=== PATIENT | male | born 1960 | race African-American/Black ===

== ENCOUNTER 2016-07-05 09:06 | Inpatient (IN) ==
[2016-07-05 09:32] LABS: MANUAL DIFF NEEDED? NO
[2016-07-05 09:40] LABS: BASO% 0.2 % (0.0-0.8); EOS# 0.36 X1000 (0.0-0.7); EOS% 2.9 % (0.0-10.0); HEMATOCRIT 43.2 % (42.0-52.0); HEMOGLOBIN 14.8 g/dL (14.0-18.0); IMM GRAN# 0.03 X1000 (0.0-0.04); IMM GRAN% 0.2 % (0.0-0.5); LYMPH# 2.26 X1000 (1.2-3.4); LYMPH% 18.2 % (20.5-51.1); MCH 30.2 PG (27-31); MCHC 34.3 g/dL (33-37); MCV 88.2 FL (81-99); MONO% 9.6 % (1.7-9.3); MPV 11.9 FL (7.4-10.4); NEUT% 68.9 % (42.2-75.2); PLT 186 X1000 (130-400)
[2016-07-05 10:09] LABS: URINE CULTURE PL NEEDED? NO
[2016-07-05 10:16] LABS: AGAP 13; ALBUMIN 4.2 g/dL (3.5-5.0); ALKALINE PHOSPHATASE 681 U/L (32-122); AMYLASE 759 U/L (20-200); BUN 7 mg/dL (8-22); CALCIUM 9.8 mg/dL (8.8-10.2); CHLORIDE 102 mmol/L (98-107); COSMO 281; GOT 207 U/L (10-34); GPT 294 U/L (10-44); POTASSIUM 3.9 mmol/L (3.5-5.1); SODIUM 142 mmol/L (136-145); TCO2 27 mmol/L (25-35); TOTAL PROTEIN 7.7 g/dL (6.3-8.3)
[2016-07-05 10:24] LABS: LIPASE 2199 U/L (13-60)
[2016-07-05 10:55] LABS: BILIRUBIN URINE NEGATIVE (NEGATIVE); BLOOD URINE NEGATIVE (NEGATIVE); CLARITY CLEAR (CLEAR); COLOR YELLOW; GLUCOSE URINE NEGATIVE (NEGATIVE); LEUKOCYTES URINE TRACE (NEGATIVE); NITRITE URINE NEGATIVE (NEGATIVE); PH URINE 6.5; PROTEIN URINE NEGATIVE (NEGATIVE); URINE WBC <10 /HPF (<10); UROBILINOGEN URINE NORMAL
[2016-07-05 10:56] LABS: URINE EPITHELIAL CELLS <10 /HPF (<10); URINE SOURCE CLEAN CATCH
--- NOTE | 2016-07-05 11:53 | EKG Report ---
Test Performed on : 07/05/2016 10:15:50 AM Test Reason : Epigastric pain / Cardiac history Blood Pressure : / mmHG Vent. Rate : 071 BPM Atrial Rate : 071 BPM P-R Int : 160 ms QRS Dur : 082 ms QT Int : 416 ms P-R-T Axes : 064 -22 029 degrees QTc Int : 452 ms Normal sinus rhythm. Possible Left atrial enlargement Left ventricular hypertrophy Anteroseptal infarct (cited on or before 12-APR-2007) Abnormal ECG When compared with ECG of 23-MAY-2011 00:49, premature supraventricular complexes. are no longer present T wave inversion no longer evident in Inferior leads Unconfirmed Result
--- NOTE | 2016-07-05 12:22 | Diag Imaging Result Document ---
PROCEDURE NAME: CT ABD/PELVIS W/ IV CONT ONLY - 07/05/2016 CT OF THE ABDOMEN WITH INTRAVENOUS CONTRAST: FINDINGS: There are multiple small cortical renal cysts. There is extensive intra and extrahepatic biliary dilatation. The gallbladder is distended, and there is pericholecystic fluid. The distal common bile duct measures in excess of 11 mm in diameter and the distal pancreatic duct measures 10 mm. There are no definite calcifications seen over the distal duct, however, the possibility of noncalcified stones, debris, or other obstructing lesions is suspected. There is no evidence of bowel obstruction. The appendix is normal in appearance. There is extensive atherosclerotic calcification in the aorta and iliac arteries. The adrenal glands are not enlarged. The spleen is not enlarged. The regional skeleton appears to be intact. CT of the pelvis with intravenous contrast. There is no evidence of free fluid. There is severe facet arthropathy at L4-5 and L3-4 on the right. IMPRESSION: Obstruction of the distal common bile duct and pancreatic duct with Courvoisier gallbladder. This may be due to a stone or other obstructing debris or stricture, however, the possibility of a distal biliary neoplasm cannot be excluded. [facility]
[2016-07-05] MEDS ORDERED: ZOSYN 3.375 GM/NS 3.375 GM/50 ML IVPB IV ONE (12:25)
--- NOTE | 2016-07-05 12:26 | PROVIDER DOCUMENTATION ---
This chart was entered by Lawson Andrew Scribe, acting as scribe for Marci Cervantes MD. HPI-Abdominal Pain/GI Problem - General Chief Complaint: Epigastric Pain Stated Complaint: ABD PAIN/HEADACHE Time Seen by Provider: 07/05/16 09:36 Source: patient Allergies/Adverse Reactions: Patient Allergies Allergy/AdvReac Type Severity Reaction Status Date / Time No Known Allergies Allergy Verified 07/05/16 09:13 Home Medications: Home Medication List Medication Instructions Recorded Confirmed Last Taken Type Aspirin 325 mg 07/05/16 07/05/16 History Metoprolol [Lopressor] 2 dose 07/05/16 07/05/16 History - History of Present Illness-ABD Nature of Presenting Problems: 55 YOBLKM PRESENTS TO ED WITH C/O PT STATES 2 TO 3 WEEKS HX OF ABDOMEN TENDERNESS. PT STATES 1 MONTH HX OF RT TEMPORAL PAIN THAT HAS BEEN INTERMITTENT. PT STATES 9/10 PAIN.PT STATES HTN AND STINTS X 6 YEARS AGO. Abdominal Pain Onset Location: reports: epigastric Pain Radiation: reports: no radiation Quality of Pain: reports: aching Severity in ED: reports: moderate Onset/Duration: reports: other (2 TO 3 WEEKS.) Timing: reports: still present Activities at Onset: reports: light activity Associated Symptoms: reports: headaches Bruising or Bleeding Gums?: No Similar Symptoms Previously?: No Review of Systems - Adult - REVIEW OF SYSTEMS - ADULT Constitutional: denies: chills, fever Cardiovascular: denies: chest pain, palpitations, syncope Respiratory: denies: cough, shortness of breath, wheezing Gastrointestinal: reports: abdominal pain (EPIGASTRIC.). denies: diarrhea, nausea, vomiting Musculoskeletal: denies: back pain, neck pain Neurological: reports: headache/migraines. denies: dizziness/vertigo, syncope Past History - Adult - PAST MEDICAL HISTORY-ADULT Review of Records: reports: Nursing Assessment Review, Medications Reviewed Cardiovascular: reports: UT - PRIOR SURGERIES/PROCEDURES Surgical/Procedure History: reports: reviewed, not pertinent - PRIOR HOSPITALIZATIONS Prior Hospitalizations: reports: for other non-related - IMMUNIZATION STATUS Childhood Immunizations: See Nurse Assessment Flu Vaccine: See Nurse Assessment - FAMILY HISTORY Family History: reviewed, not pertinent - SOCIAL HISTORY Smoking: denies Substance Use: denies Alcohol Use Frequency: never Living Situation: alone Physical Exam-General - CONSTITUTIONAL General Appearance: alert - EYES Eyes: PERRL/EOMI, pink conjunctivae - HEAD, EARS, NOSE, MOUTH & THROAT HENMT: normocephalic/atraumatic, moist mucous membranes - NECK Neck: non-tender, full range of motion, supple - RESPIRATORY Respiratory: chest non-tender, lungs clear, normal breath sounds - CARDIOVASCULAR Cardiovascular: normal peripheral pulses, regular rate, rhythm - GASTROINTESTINAL (ABDOMEN) Abdominal Exam: normal bowel sounds, non tender, soft - LYMPHATIC Lymphatic: no adenopathy - MUSCULOSKELETAL Back Exam: normal inspection, no CVA tenderness, no vertebral tenderness Extremity: normal range of motion, non-tender - SKIN Integumentary: normal color, normal turgor, warm/dry - NEUROLOGIC Neurologic: grossly normal - PSYCHIATRIC Psych/Mental Status: oriented x 3 Progress - PLAN OF CARE/RESULTS Progress/Plan/Lab Results: Vital Signs - 8 hr 07/05/16 09:09 Temperature 97.9 F Pulse Rate 78 Respiratory Rate 18 Blood Pressure 187/107 O2 Sat by Pulse Oximetry 100 Laboratory Results - last 24 hr 07/05/16 07/05/16 07/05/16 09:28 09:28 09:28 WBC 12.45 H RBC 4.90 Hgb 14.8 Hct 43.2 MCV 88.2 MCH 30.2 MCHC 34.3 RDW Std Deviation 14.4 Plt Count 186 MPV 11.9 H Immature Gran % (Auto) 0.2 Neut % (Auto) 68.9 Lymph % (Auto) 18.2 L [place] % (Auto) 9.6 H Eos % (Auto) 2.9 Baso % (Auto) 0.2 Immature Gran # (Auto) 0.03 Neut # (Auto) 8.57 H Lymph # (Auto) 2.26 [place] # (Auto) 1.20 H Eos # (Auto) 0.36 Baso # (Auto) 0.03 Sodium 142 Potassium 3.9 Chloride 102 Carbon Dioxide 27 Anion Gap 13 BUN 7 L Creatinine 0.9 Estimated GFR/1.73 m2 > 60 BUN/Creatinine Ratio 8 Glucose 93 Calculated Osmolality 281 Calcium 9.8 Total Bilirubin 1.60 H AST 207 H ALT 294 H Alkaline Phosphatase 681 H Troponin T < 0.010 Total Protein 7.7 Albumin 4.2 Globulin 4.0 Albumin/Globulin Ratio 1.0 Amylase 759 H Orders Category Date Time Status NPO Diet 07/05/16 09:17 Active CHEST-PORTABLE [RAD] Stat Exams 07/05/16 10:[address] ABD/PELVIS W/ IV CONT ONLY [CT] Stat Exams 07/05/16 10:10 Ordered AMYLASE [CHEM] Stat Lab 07/05/16 09:28 Results CBC WITH ELECTRONIC DIFF [HEME] Stat Lab 07/05/16 09:28 Completed COMPREHENSIVE METABOLIC PANEL [CHEM] Stat Lab 07/05/16 09:28 Results LIPASE [CHEM] Stat Lab 07/05/16 09:28 Results SED RATE [HEME] Stat Lab 07/05/16 09:28 Received TROPONIN T Stat Lab 07/05/16 09:[address] W/POSS RFLX CULT [URINALYSIS] Stat Lab 07/05/16 09:30 Received EKG [EKG] Stat Ther 07/05/16 10:03 Ordered Result Diagrams: 07/05/16 09:28 07/05/16 09:28 - CT/MRI 1 CT Study: Abdomen CT Results: ENLARGE GALL BLADDER WITH FREE FLUID AROUND GALL BLADDER, POSS. TUMOR. - CONSULTS/PCP/HOSPITALIST Notification Time Discussed: 12:25 Reason/Comments: Admit to Dr. Delacruz Departure - Departure Time of Disposition Decision: 12:24 DIAGNOSIS: Choledocholithiasis Disposition: ADMITTED INPATIENT 09 Certified Medical Emergency: Emergent Condition: Stable Referrals and Follow-Ups: None,PCP [Primary Care Provider] - This chart was documented by the indicated scribe, (Lawson Andrew Scribe) and accurately reflects the services I performed and decisions made by me, Marci Cervantes MD, as attested by the provider's signature.
--- NOTE | 2016-07-05 14:42 | Diag Imaging Result Document ---
PROCEDURE NAME: CHEST-2 VIEWS - 07/05/2016 PA AND LATERAL RADIOGRAPH OF THE CHEST: COMPARISON: None available. FINDINGS: The lungs are grossly clear. There is no discrete pleural fluid collection or evidence of pneumothorax. The cardiomediastinal silhouette and upper airway are grossly unremarkable. IMPRESSION: No evidence of acute chest pathology.
[2016-07-05] MEDS: NS 1,000 ML IV SCH (14:48)
[2016-07-05] MEDS: DILAUDID IV PRN ×3 (14:48→22:13)
--- NOTE | 2016-07-05 16:20 | ED EKG INTERP ---
This chart was entered by Lawson Andrew Scribe, acting as scribe for Marci Cervantes MD. EKG Interpretation - EKG Time of EKG reading by physician:: 10:16 EKG Read and Signed by:: Marci Cervantes EKG Interpretation (*Must complete 3 of following elements*): Abnormal Rate: 71 Rhythm: NSR QRS: LVH Comments: POSSIBLE LTATRIAL ENLARGEMENT. ANTEROSEPTAL INFARCT. This chart was documented by the indicated scribe, (Lawson Andrew Scribe) and accurately reflects the services I performed and decisions made by me, Marci Cervantes MD, as attested by the provider's signature.
[2016-07-05] MEDS: NICODERM PATCH TD SCH (16:31)
--- NOTE | 2016-07-05 16:57 | HISTORY AND PHYSICAL ---
PRIMARY CARE PHYSICIAN: None. CHIEF COMPLAINT: A 2-3 week history of right upper quadrant and epigastric abdominal pain that has progressively worsened. HISTORY OF PRESENTING ILLNESS: This is a 55-year-old, male, who presented to [facility] ER with complaints of a 2-3 week history of right upper quadrant and epigastric abdominal pain that has progressively worsened. On arrival, white blood cell count was noted to be 12.45. Total bilirubin was 1.60, AST of 207, ALT 294. Alkaline phosphatase 681. Amylase of 759. Lipase 2199. CT of the abdomen and pelvis showed an impression of an obstruction of the distal common bile duct and pancreatic duct with Courvoisier gallbladder. This may be due to a stone or other obstructing debris or stricture. However, the possibility of a distal biliary neoplasm cannot be excluded. So, he is being admitted for further evaluation and treatment. PAST MEDICAL HISTORY: Hypertension and an AK. PAST SURGICAL HISTORY: Heart stent x3. FAMILY HISTORY: Noncontributory. SOCIAL HISTORY: Currently lives alone. Smokes 1 pack of cigarettes a day and has done so for the past 25 years. Denies any alcohol or illicit drug use. ALLERGIES: He has no known drug allergies. HOME MEDICATIONS: We will have to verify his home medications and restart after his n.p.o. status has been discontinued. LABORATORY DATA: Showed a white blood cell count of 12.45, hemoglobin 14.8, hematocrit 43.2, platelets 186. Sodium 142, potassium 3.9, chloride 102, CO2 of 27, BUN of 7, creatinine is 0.9. Total bilirubin of 1.60. AST of 207, ALT 294. Alkaline phosphatase 681. Amylase of 759. Lipase 2199. Urinalysis was negative. CT of the abdomen and pelvis showed an obstruction of the distal common bile duct and pancreatic duct with Courvoisier gallbladder. This may be due to a stone or other obstructing debris or stricture. However, the possibility of a distal biliary neoplasm cannot be excluded. EKG showed normal sinus rhythm at 71. REVIEW OF SYSTEMS: She denied any fever, chills, blurred vision, dizziness, chest pain, coughing, shortness of breath. He is positive for abdominal pain in the right upper quadrant and epigastric area. Nausea. Denied any vomiting, constipation, diarrhea or burning or hurting with urination. PHYSICAL EXAMINATION: VITAL SIGNS: Showed a temperature of 97.9, pulse 78, respirations 18, blood pressure was 187/107. GENERAL: This is a 55-year-old, male, who is lying in the bed, and answers questions appropriately. HEENT: Normocephalic and atraumatic. Pupils are equal, round and reactive to light. Extraocular movements are intact. Oropharynx and nares are clear. NECK: Supple. LUNGS: Clear to auscultation bilaterally with equal lung expansion and chest wall movement. HEART: With regular rate and rhythm. No murmurs, rubs, or gallops. ABDOMEN: Soft, tender to right upper quadrant epigastric area. Bowel sounds are present x4 quadrants. EXTREMITIES: No clubbing, cyanosis, or edema. NEUROLOGICAL: The cranial nerves 2-12 are grossly intact. ASSESSMENT: 1. A choledocholithiasis. 2. Acute pancreatitis. 3. Elevated liver function tests. 4. Hypertension. 5. Tobacco abuse. PLAN: He will be admitted to the medical unit at [facility]. Held n.p.o. We will consult surgery. We will recheck a CBC, CMP. Amylase, lipase in the a.m. We will give him Dilaudid 1 mg IV q.3 hours p.r.n., Zofran 4 mg IV q.4 hours p.r.n., normal saline at 100 mL an hour. Dictated by GERMAN Lazo for Siddharth Delacruz MD cc: GERMAN Lazo MD
[2016-07-05] MEDS: ZOSYN 3.375 GM/NS 3.375 GM/50 ML IVPB IV SCH (17:55)
--- NOTE | 2016-07-05 19:13 | CONSULTATION ---
DATE OF CONSULTATION: 07/05/2016 REQUESTING PHYSICIAN: Hospitalist service. CONSULT CONCERNING: Common bile duct obstruction. HISTORY OF PRESENT ILLNESS: A 55-year-old male presenting with a several-week history of right upper quadrant and epigastric pain. He reports the pain as being aching and moderate intensity. It has been going on for 2-3 weeks but still been present towards the end epigastric region in the right upper quadrant. He was evaluated in emergency department, had a CT scan that showed biliary ductal dilatation, courvoisier's sign of his gallbladder and the concern that he might have an obstruction either from a stone or from growth or mass in the biliary tree. I was asked to evaluate the patient. He is still reporting some epigastric pain. He denies this ever happening previously. PAST MEDICAL HISTORY: Includes previous NC. PAST SURGICAL HISTORY: None. FAMILY HISTORY: Negative for pancreatic cancers or biliary disease. SOCIAL HISTORY: Reports some smoking, denies recreational drugs and some alcohol intake. HOME MEDICATIONS: To include aspirin and Lopressor. ALLERGIES: None. REVIEW OF SYSTEMS: A full 10 point review of systems obtained, negative as specified in HPI. PHYSICAL EXAMINATION: Vital Signs: Patient is currently afebrile. His vital signs have been stable. General: No acute distress. Alert, interactive, male looks stated age. HEENT: Normocephalic, atraumatic. Pupils equal, round, reactive to light. No scleral icterus noted at this time. Oropharynx benign. Neck: Supple. Trachea midline. Cardiovascular : Regular rate and rhythm. Lungs: Grossly clear. Abdomen: Soft. Some tenderness to palpation in the epigastric right upper quadrant. No peritonitis. Extremities: Moves all extremities. Neurologic: Grossly intact. Skin: No signs of jaundice. Vascular: All extremities perfused. LABORATORY: Reviewed. White blood cell count 12.4, hematocrit 43, platelet count 186,000. Total bilirubin 1.60, AST 207, ALT 294, alkaline phosphatase 681, amylase 759, lipase 2199. CT scan independently reviewed and discussed over the phone with Dr. Stephenson. Patient does have what appears to be biliary tree dilatation. ASSESSMENT AND PLAN: A 55-year-old male with epigastric pain, possible biliary pancreatitis versus pancreatitis secondary to obstructing lesion. Possible biliary pancreatitis. At this time, will repeat patient's labs as ordered by the hospitalist service. Agree with keeping him NPO and IV fluids for resuscitation. He is on antibiotics prevent possible cholangitis. At this time his gallbladder has some pericystic fluid but this may be secondary to the obstruction causing secondary cholecystitis. At this time there is not a significant amount of filling defects in the gallbladder to suggest gallstones but he could have small stones not noticeable on CT scan. Regardless, if his labs seem to improve will plan on surgical intervention tomorrow afternoon and if they do not seem to improve he may need ERCP evaluation by GI. I appreciate the consult. I will continue to follow with you. cc: Too Chou MD MTDD
[2016-07-06] MEDS: ZOSYN 3.375 GM/NS 3.375 GM/50 ML IVPB IV SCH ×4 (01:04→18:16)
[2016-07-06] MEDS: NS 1,000 ML IV SCH ×3 (01:05→23:16)
[2016-07-06 05:54] LABS: MANUAL DIFF NEEDED? NO
[2016-07-06 06:06] LABS: BASO% 0.2 % (0.0-0.8); EOS# 0.33 X1000 (0.0-0.7); EOS% 3.3 % (0.0-10.0); HEMATOCRIT 39.5 % (42.0-52.0); HEMOGLOBIN 13.8 g/dL (14.0-18.0); IMM GRAN# 0.02 X1000 (0.0-0.04); IMM GRAN% 0.2 % (0.0-0.5); LYMPH# 1.91 X1000 (1.2-3.4); LYMPH% 19.2 % (20.5-51.1); MCH 31.2 PG (27-31); MCHC 34.9 g/dL (33-37); MCV 89.2 FL (81-99); MONO# 0.86 X1000 (0.11-0.59); MONO% 8.7 % (1.7-9.3); MPV 12.9 FL (7.4-10.4); NEUT% 68.4 % (42.2-75.2); PLT 159 X1000 (130-400); RBC 4.43 XMIL (4.7-6.1)
[2016-07-06 06:27] LABS: AGAP 15; AMYLASE 341 U/L (20-200); BUN 10 mg/dL (8-22); CALCIUM 8.8 mg/dL (8.8-10.2); CHLORIDE 106 mmol/L (98-107); COSMO 285; LIPASE 275 U/L (13-60); POTASSIUM 3.7 mmol/L (3.5-5.1); SODIUM 144 mmol/L (136-145); TCO2 23 mmol/L (25-35)
--- NOTE | 2016-07-06 06:29 | PROGRESS NOTE ---
DATE: 07/06/2016 SUBJECTIVE: The patient says he is feeling somewhat better as far as his pain is concerned. No other major changes. OBJECTIVE: Vital Signs: Patient is currently afebrile. His vital signs have been stable. His blood pressure most recently is 193/106. General: No acute distress. Resting comfortably in bed. HEENT: Normocephalic, atraumatic. Pupils equal, round, react to light. Mucous membranes moist. Oropharynx benign. Neck: Supple. Trachea midline. Cardiovascular: Regular rate and rhythm. Lungs: Grossly clear. Abdomen: Soft, less tender to palpation at the epigastric and right upper quadrant. Extremities: Moves all extremities. Vascular: All extremities perfused. LABORATORY: Currently pending. ASSESSMENT AND PLAN: A 55-year-old male with dilated biliary tree with possible choledocholithiasis and biliary pancreatitis. 1. Possible biliary pancreatitis. At this time, patient's labs are pending. We will follow up with the labs. If still elevated, may need to consider Gastroenterology consult for endoscopic retrograde cholangiopancreatography. He does not have a significant stone burden noted on CT scan but this does not mean he might not have small stones that are causing obstruction but there is a possibility that he might have a periampullary mass. If his labs are improving, we will consider surgical intervention today or tomorrow depending on his pancreatitis. 2. Hypertension. At this time, we will defer further management to the hospitalist service. cc: Too Chou MD
[2016-07-06] MEDS: NICODERM PATCH TD SCH (08:40)
[2016-07-06] MEDS: APRESOLINE IV PRN (08:40)
[2016-07-06] MEDS: DILAUDID IV PRN (08:40)
[2016-07-06 08:43] LABS: ALBUMIN 3.5 g/dL (3.5-5.0); DIRECT BILIRUBIN 0.5 mg/dL (0.00-0.20); TOTAL BILIRUBIN 1.54 mg/dL (0.20-1.00); TOTAL PROTEIN 6.5 g/dL (6.3-8.3)
--- NOTE | 2016-07-06 11:27 | PROGRESS NOTE ---
DATE: 07/06/2016 SUBJECTIVE: Mr. Ramón Donald is a 55-year-old, male. He is in no acute distress, but states that he feels a little bit dizzy and short of breath, although vital signs are stable. He feels like it was after receiving medication to get his blood pressure down. His most recent blood pressure was 169/91. Otherwise, no complaints. He received pain medication shortly before I came in, and the pain that he had was in the left upper quadrant, but is pain- free at this time. OBJECTIVE: Vital Signs: Temperature 98.6 degrees, heart rate 76, respiratory rate 18, blood pressure 169/91, O2 saturation 98% on room air. General: Mr. Donald is a 55-year-old, male, in no acute distress, able to answer questions appropriately. Cardiovascular: S1, S2. Regular rate and rhythm. No rubs, gallops, murmurs. Pulmonary: Clear to auscultation. Bilateral breath sounds. No accessory muscle use or work of breathing noted. GI: Soft, nontender, nondistended. Positive bowel sounds x4. LABORATORY DATA: White blood cells 9000, hemoglobin 13, hematocrit 39, platelet count 159. Sodium 144, potassium 3.7, BUN 10, creatinine is 1.1. Glucose 89. Bilirubin down 1.54, AST up to 218, ALT up to 330, alkaline phos down to 590. Amylase down to 341 and lipase down to 275. ASSESSMENT/PLAN: 1. Possible biliary pancreatitis. Pancreatic enzymes have improved. Dr. Chou had plans for a cholangiogram today. Depending on results, will need gastroenterology consult for endoscopic retrograde cholangiopancreatography. This will depend on results of cholangiogram. There are likely small stones causing obstruction, and a possibility of a periampullary mass. Will continue intravenous fluid hydration. 2. Hypertension. He has Apresoline 10 mg intravenous every 6 hours as needed, but there are no scheduled antihypertensives. Will likely need to add clonidine. It looks like he is running anywhere from 160s to 190s over 90s to 100s. 3. Tobacco abuse. Cessation discussed. Dictated by GERMAN Bolton for Michael Shukla MD cc: GERMAN Bolton MD
[2016-07-06] MEDS: CATAPRES PO SCH ×2 (13:57→18:22)
[2016-07-06] MEDS ORDERED: MARCAINE 0.25% PF/EPI 1:200,000 ONE (18:36)
[2016-07-06] MEDS ORDERED: SODIUM CHLORIDE 0.9% ONE (18:36)
[2016-07-06] MEDS ORDERED: LR 1,000 ML ONE (18:37)
[2016-07-06] MEDS ORDERED: XYLOCAINE 1% ONE (18:37)
[2016-07-06] MEDS: DILAUDID ONE ×6 (20:18→21:48)
[2016-07-06] MEDS ORDERED: FENTANYL ONE (20:18)
[2016-07-06] MEDS ORDERED: DIPRIVAN 1% ONE (20:19)
[2016-07-06] MEDS ORDERED: NS 1,000 ML ONE (21:08)
[2016-07-06] MEDS ORDERED: LABETALOL ONE (21:20)
[2016-07-06] MEDS ORDERED: APRESOLINE ONE (21:20)
[2016-07-06] MEDS: PERIDEX MT SCH (23:17)
[2016-07-06] MEDS ORDERED: LR 0 ML ONE (23:22)
--- NOTE | 2016-07-07 01:01 | OPERATIVE NOTE ---
PROCEDURE DATE: 07/06/2016 PREOPERATIVE DIAGNOSES: 1. Pancreatitis. 2. Cholecystitis. 3. Common bile duct obstruction. POSTOPERATIVE DIAGNOSES: 1. Pancreatitis. 2. Cholecystitis. 3. Common bile duct obstruction. PROCEDURE PERFORMED: Laparoscopic cholecystectomy with cholangiogram. SURGEON: Too Chou MD. JEWEL BEARING GRINDER: None. ANESTHESIA: General endotracheal. FINDINGS: Dilated common bile duct and pancreatic duct noted on cholangiogram. There were no stones noted on the gallbladder, or any filling defects noted at the cholangiogram. There was a potential for a stricture at the distal aspect of the common bile duct at the ampulla. It was difficult to get contrast past it. We were able to get some contrast into the duodenum, but again this was a significantly dilated common bile duct and pancreatic duct, which were both visualized on the cholangiogram. COMPLICATIONS: None at time of dictation. ESTIMATED BLOOD LOSS: 5 mL. SPECIMENS REMOVED: Gallbladder. DRAINS: 19-Y[place]ut Darnell drain. BRIEF HISTORY: The patient is a 55-year-old male, presenting with epigastric pain and pancreatitis. He had a CT scan that showed extra and intrahepatic ductal dilatation, and a dilated gallbladder. It was felt that he might have a common bile duct stone causing this obstruction. He did present with pancreatitis. His pancreatitis clinically improved. It was felt the patient would benefit from a laparoscopic cholecystectomy. We elected to do a cholangiogram at that time. The risks, benefits, and alternatives were discussed with the patient. All questions were answered. DESCRIPTION OF PROCEDURE: After informed consent was obtained, the patient was brought to the operative theatre, transferred to the operative table, and placed in the supine position. General endotracheal anesthesia was then performed without complication. A formal time-out was then performed, confirming patient, date, procedure. All were in agreement. At that time, attention was given to the abdomen. An infraumbilical incision was made, through which using Optiview technique, we were able to insert an 11 mm trocar, connected to insufflation. Pneumoperitoneum was achieved. Under direct visualization, we placed 3 more trocars, all 5 mm, 1 in the subxiphoid, 2 in the right upper quadrant. Using these, the gallbladder was identified. It was very distended. It had some adhesions around it, which we took down. We were able to retract it cephalad. We were able to dissect out the cystic duct. We were able to see the common bile duct, which was significantly dilated. We were able to isolate the cystic duct. We placed a clip on the gallbladder side, and made a ductotomy. Upon doing the ductotomy, we had a significant flow of bile that was under pressure come out of the cystic duct. We were able to place a cholangiogram catheter and shot a cholangiogram. The cystic duct was short, but dilated. Common bile duct was very dilated. We were able to actually see contrast go into the pancreatic duct. There was delayed emptying into the duodenum. We were unable to see the left and right hepatic ducts, given the significant size of the dilation of the common bile duct. We removed the cholangiogram catheter. Place 3 clips on the cystic duct. We were able to identify the cystic artery, and dissected out and clipped it. We were able to take the gallbladder off the gallbladder fossa using electrocautery. We placed it into an endobag and brought it out through the infraumbilical incision. We reexamined the gallbladder fossa. There was no active drainage of bile or bleeding. Given the fact that the cystic duct was very short and dilated, and the common bile duct was dilated, and biliary pressure was elevated, we elected to place a drain, tunneled from the most lateral trocar site. We placed it near the gallbladder fossa. This was to control if there is any significant bile leakage. We did irrigate the abdomen copiously because we did drain a significant amount of bile into the abdomen trying to get the gallbladder out, but we irrigated until the suctioned fluid was clear. We then removed all trocars after closing the infraumbilical incision with 0 Vicryl on a Kip-Neno device. We closed all skin incisions with 4-0 Monocryl. The patient tolerated the procedure well, was transferred to the recovery room in stable condition. Postoperatively, we will get GI to see him for an ERCP in the morning to rule out ampullary mass. cc: Too Chou MD
[2016-07-07] MEDS: ZOSYN 3.375 GM/NS 3.375 GM/50 ML IVPB IV SCH ×4 (01:20→18:40)
[2016-07-07] MEDS: DILAUDID IV PRN ×4 (02:44→22:22)
[2016-07-07] MEDS: NORCO-10 PO PRN ×2 (03:53→23:15)
[2016-07-07] MEDS ORDERED: LOPRESSOR PO SCH (06:05)
[2016-07-07 06:15] LABS: MANUAL DIFF NEEDED? NO
[2016-07-07 06:17] LABS: BASO% 0.1 % (0.0-0.8); HEMATOCRIT 35.6 % (42.0-52.0); HEMOGLOBIN 12.2 g/dL (14.0-18.0); IMM GRAN# 0.05 X1000 (0.0-0.04); IMM GRAN% 0.4 % (0.0-0.5); LYMPH# 0.88 X1000 (1.2-3.4); LYMPH% 6.3 % (20.5-51.1); MCH 30.5 PG (27-31); MCHC 34.3 g/dL (33-37); MONO# 1.21 X1000 (0.11-0.59); MONO% 8.7 % (1.7-9.3); MPV 12.7 FL (7.4-10.4); NEUT% 84.5 % (42.2-75.2); PLT 175 X1000 (130-400)
[2016-07-07 06:47] LABS: AGAP 14; ALBUMIN 3.4 g/dL (3.5-5.0); ALKALINE PHOSPHATASE 560 U/L (32-122); BUN 12 mg/dL (8-22); CALCIUM 8.7 mg/dL (8.8-10.2); CHLORIDE 104 mmol/L (98-107); COSMO 285; GOT 229 U/L (10-34); GPT 306 U/L (10-44); POTASSIUM 4.1 mmol/L (3.5-5.1); SODIUM 142 mmol/L (136-145); TCO2 24 mmol/L (25-35); TOTAL BILIRUBIN 3.37 mg/dL (0.20-1.00); TOTAL PROTEIN 6.1 g/dL (6.3-8.3)
--- NOTE | 2016-07-07 06:53 | EKG Report ---
Test Performed on : 07/07/2016 06:23:17 AM Test Reason : Tachycardia Blood Pressure : / mmHG Vent. Rate : 108 BPM Atrial Rate : 108 BPM P-R Int : 144 ms QRS Dur : 080 ms QT Int : 358 ms P-R-T Axes : 063 -16 021 degrees QTc Int : 479 ms Sinus tachycardia. Minimal voltage criteria for LVH, may be normal variant Anteroseptal infarct (cited on or before 12-APR-2007) Abnormal ECG When compared with ECG of 05-JUL-2016 10:15, Vent. rate has increased BY 37 BPM No significant change was found Confirmed by Valarie DRAKE, Leonidas Barba ([id number]) on 07/07/2016 8:39:57 AM
--- NOTE | 2016-07-07 07:39 | PROGRESS NOTE ---
DATE: 07/07/2016 SUBJECTIVE: The patient is having some right upper quadrant pain. No major issues reported by the nursing staff. No bile noted in the BRIDGET drain. He did have a laparoscopic cholecystectomy yesterday. He did not have a significant stone burden or any stones that I noticed in his gallbladder or in his common bile duct. He had what looked like a stricture of the distal aspect of his common bile duct. I was able actually fill the pancreatic duct with the cholangiogram. OBJECTIVE: Vital Signs: Patient is currently afebrile. He has had a mild tachycardia in the 110s. Blood pressure 164/105, respiratory rate 18 and nonlabored. O2 saturation 100%. General Examination: No acute distress but mildly uncomfortable. Cardiovascular: Mildly tachycardic. Lungs: Grossly clear. Abdomen: Soft. Some mild tenderness to palpation in the right upper quadrant. No peritonitis. BRIDGET drain in place with serosanguineous output, 60 mL recorded. ASSESSMENT AND PLAN: A 55-year-old, male status post laparoscopic cholecystectomy with cholangiogram with common bile duct obstruction. Common bile duct obstruction. At this time, I have consulted gastroenterology and talked with Dr. Thorne. I suspect, given the fact that he did not have any stones in his gallbladder, that this might represent an obstruction secondary to some other etiology. We were able to have enough pressure and resistance at the ampulla to fill the pancreatic duct. There is a plan to do an endoscopic retrograde cholangiopancreatography in the next 24-48 hours. At this point, continue current treatment. We will have hospitalists continue to monitor him for his blood pressure. cc: Too Chou MD
--- NOTE | 2016-07-07 07:55 | Diag Imaging Result Document ---
PROCEDURE NAME: OPERATIVE CHOLANGIOGRAM - 07/06/2016 INTRAOPERATIVE CHOLANGIOGRAM, 2 VIEWS: FINDINGS: There is abrupt narrowing of the distal common bile duct, probably less than a centimeter in length. The remainder of the duct is markedly distended as was also present on the CT examination of 07/05/2016. The second image demonstrates a dilated pancreatic duct with similar findings distally. IMPRESSION: The possibility of a mass in the ampulla of Vater producing obstruction of both the distal common bile duct and the pancreatic duct is suggested.
[2016-07-07] MEDS ORDERED: NORCURON ONE (09:28)
[2016-07-07] MEDS ORDERED: NEOSTIGMINE ONE (09:28)
[2016-07-07] MEDS ORDERED: DECADRON ONE (09:28)
[2016-07-07] MEDS ORDERED: ANESTHESIA PB SET 88 IN 5742 ONE (09:28)
[2016-07-07] MEDS ORDERED: EXTENSION SET 32 IN 4522 ONE (09:28)
[2016-07-07] MEDS ORDERED: QUELICIN (DOSE) ONE (09:28)
[2016-07-07] MEDS ORDERED: ROBINUL ONE (09:28)
[2016-07-07] MEDS ORDERED: XYLOCAINE-MPF 2% ONE (09:28)
[2016-07-07] MEDS ORDERED: LR 3,000 ML ONE (09:28)
[2016-07-07] MEDS ORDERED: ZOFRAN ONE (09:28)
[2016-07-07] MEDS: NICODERM PATCH TD SCH (09:29)
[2016-07-07] MEDS: SODIUM CHLORIDE 0.9% INJ SCH (09:50)
[2016-07-07] MEDS: PROTONIX IV SCH ×2 (09:50→22:23)
[2016-07-07] MEDS: NS 1,000 ML IV SCH ×3 (10:01→23:15)
[2016-07-07] MEDS: LOPRESSOR PO SCH ×2 (11:34→22:23)
[2016-07-07] MEDS: ZOFRAN IV PRN ×2 (11:34→16:52)
[2016-07-07] MEDS: PERIDEX MT SCH ×2 (11:34→22:23)
--- NOTE | 2016-07-07 12:29 | CONSULTATION ---
DATE OF CONSULTATION: 07/07/2016 GASTROENTEROLOGY INPATIENT CONSULTATION REFERRING PHYSICIAN: Dr. Cohu. REASON FOR CONSULTATION: He was admitted with a dilated common bile duct, pancreatitis, history of alcoholism. HISTORY OF PRESENT ILLNESS: Mr. Donald is a 55-year-old male who was admitted on 07/05/2016 with symptoms of right upper quadrant/epigastric pain along with nausea and vomiting , elevated liver enzymes, elevated amylase and lipase, and a CT scan was done which showed evidence of possible obstruction of common bile duct and pancreatic duct with [place] gallbladder , and it was initially thought it was because of choledocholithiasis. The patient underwent laparoscopic cholecystectomy with intraoperative cholangiogram with Dr. Chou yesterday. He left a drain. Intraoperative cholangiogram showed evidence of a dilated common bile duct with a possible stricture in the distal common bile duct and possible blockage of the ampulla as the dye was able to go into the pancreas. The patient had a history of alcoholism for many decades. He has been trying to cut down for the last one month. He drinks 4-6 beers a day. He denies having any previous pancreatitis in the past. I believe pancreatitis is likely secondary to acute on chronic pancreatitis from history of alcoholism. The patient denies any previous history of blunt abdominal trauma injury or prior family history of pancreatic pathology. PAST MEDICAL HISTORY: 1. Hypertension. 2. MA. 3. Alcoholism. PAST SURGICAL HISTORY: 1. Heart stents x3 on aspirin. 2. Cholecystectomy with intraoperative cholangiogram on 07/06/[address] Chou. FAMILY HISTORY: Noncontributory. No family history of colon cancer, stomach cancer, or pancreatic cancer. SOCIAL HISTORY: He lives alone. He smokes 1 pack a day x25 years. He drinks heavily for the last 2 decades, has tried to cut down the last one month. No history of drug abuse. His cousin and family were at the bedside, very supportive. ALLERGIES: No known drug allergies. MEDICATIONS IN THE HOSPITAL: Include: 1. Peridex. 2. Hydralazine. 3. Hydrocodone/acetaminophen. 4. Dilaudid. 5. Metoprolol. 6. Nicotine patch. 7. IV fluids, normal saline at 100 mL/h. 8. Zofran. 9. Protonix 40 mg IV b.i.d. 10. Zosyn 3.375 g IV q.6 h. He is only n.p.o. REVIEW OF SYSTEMS: Denies any current fever, rigors, chills, chest pain, shortness of breath, dyspnea on exertion, genitourinary, or neurologic complaints. No history of vomiting blood or passing blood in the stools. He does have a history of nausea with dry heaving for the last 24 hours since the surgery. Denies any history of melena. Denies any history of major use of NSAIDs. He does take aspirin 325 mg daily for a history of coronary artery disease and stent. PHYSICAL EXAMINATION: Vital signs: Temperature 98.2, pulse rate of 109, respiratory rate of 16, blood pressure 145/99, satting 99% on 2 L of nasal cannula, body weight of 155 pounds, BMI 21 kg/m2. General appearance: Thin male lying in bed in no acute distress. HEENT : Pale conjunctivae. He has positive icterus. Pupils equal, reactive to light. Neck : Supple. Chest: Decreased breath sounds. Cardiac: Regular rate and rhythm, no murmurs. Abdomen: Right upper quadrant drain. Hyperactive bowel sounds. Discomfort in the periumbilical region, appears to be doing no guarding. Extremities: No cyanosis, clubbing, or edema. Neurologic: He is alert, awake. LABORATORIES: His hemoglobin and hematocrit are 12.2 and 35.6, white count of 13.9, platelet count of 135, MCV of 89. Sodium 142, potassium 4.1, chloride 104, bicarbonate 24, anion gap of 14, BUN 12, creatinine 1.1, glucose 141, calcium 8.7. Total bilirubin 3.37, AST 229, ALT 306, alkaline phosphatase, total protein 6.1, albumin 3.4. Amylase of 341, lipase of 275. On admission, amylase and lipase were 759 and 219 respectively. Urinalysis showing trace white cells. IMAGING: In the form of abdominal CT scan done on 07/04/2016 showed distal common bile duct measuring in excess of 11 mm, distal pancreatic duct measuring 10 mm. No discrete calcifications seen in the distal duct. No evidence of bowel obstruction. The appendix is normal. Extensive atherosclerotic calcification in the aorta and iliac vessels. The adrenal glands are not enlarged. Extensive intra and extrahepatic biliary dilation. Multiple small cortical renal cysts noted. Intraoperative cholangiogram: Possibility of mass in the ampulla of Vater producing obstruction of both the distal common bile duct and the pancreatic duct is suggested. IMPRESSION AND PLAN: 1. Dilated common bile duct and pancreatic duct, initial cause suspect chronic pancreatitis associated stricture versus ampullary neoplasm versus ampullary stenosis versus rule out pancreatic neoplasm. 2. Pancreatitis which is getting better. 3. Jaundice, elevated liver enzymes. 4. Status post cholecystectomy on 07/06/2016. RECOMMENDATIONS: 1. Will keep the patient on IV fluids and we will keep him on IV PPIs. 2. The patient was strongly recommended to quit alcohol completely. The patient also was counseled to quit smoking. Start MVI QD for 6-12 weeks. 3. The patient will continue IV pain control, IV antibiotics. 4. We will schedule him for ERCP tomorrow with Dr. Roy. The risks, benefits, indications, alternatives of the procedure were discussed with the patient and family. All questions were answered. cc: MD Too Boo MD Omar J. Sosa-Chirinos, MD MTDAlanna
--- NOTE | 2016-07-07 14:34 | PROGRESS NOTE ---
DATE: 07/07/2016 SUBJECTIVE: This patient states that he is feeling a little bit nauseated, he is not complaining about pain. He is asking for food and the gastroenterology department has placed this patient on a liquid diet. I will put this patient NPO after midnight. This patient is going for ERCP in the morning. He denies diarrhea, constipation. No chest pain. No shortness of breath. OBJECTIVE: Vital Signs: Temperature 97.9 degrees, pulse 115, respiratory rate 16, blood pressure 143/99, oxygen saturation 98 on room air. HEENT: Head normocephalic. No trauma. PERRLA. Neck: Supple. No JVD. No masses. Central trachea. Chest: Clear to auscultation. No wheezing. No rales. Cardiovascular: Tachycardic. Abdomen: Soft, mild tenderness to palpation at the level of the epigastric area. Positive bowel sounds. Extremities: No edema. No clubbing. No cyanosis. Neurological: The patient is alert and oriented x3. No focal neurological deficits. LABORATORY DATA: WBC 13.9, hemoglobin 12.2, hematocrit 35.6, platelets 175,000. Sodium 142, potassium 4.1, chloride 104. Bicarbonate 24, BUN 12, creatinine 1.1, glucose 141, calcium 8.7. Total bilirubin 3.3, AST 229. ALT 306. Alkaline phosphatase 560. Albumin 3.4. ASSESSMENT AND PLAN: 1. Possible biliary pancreatitis. This patient has a laparoscopic cholecystectomy with cholangiogram, the intraoperative cholangiogram showed the possibility of a mass in the ampulla of Vater producing obstruction of both the distal common bile duct and the pancreatic duct. Gastroenterology department has been consulted and they will perform an ERCP tomorrow. For now, this patient will be on a clear liquid diet and he will be NPO after midnight. 2. Hypertension. I put this patient back on his home medication Lopressor. He received the 1st dose today, the blood pressure is in the 140s and the heart rate is in the 110s. Hopefully with this medication the heart rate and blood pressure will improve. 3. Tobacco abuse. I highly advised this patient against tobacco use and I will continue with daily cessation education. cc: Micahel Shukla MD
--- NOTE | 2016-07-07 15:05 | ECHO REPORT ---
ORDER DATE: 07/07/2016 INDICATION: History of coronary disease, tachycardia, history of ND. FINDINGS: 1. Right atrium is normal in size at 3.9 cm. 2. Trace tricuspid regurgitation. RV systolic pressure of 29. 3. Normal RV size and systolic function. 4. Mild pulmonic insufficiency. 5. Normal left atrial size at 3.2 cm. 6. No mitral prolapse. Mild mitral regurgitation. 7. Normal LV size, end-diastolic dimension of 4.5. Borderline mild left ventricular hypertrophy with posterior and interventricular septal thickness 1.1 and 1.2 cm each respectively. Normal LV systolic function. Calculated EF of 59%. On some views, there does appear to be mild inferior, inferior lateral hypokinesis to akinesis. 8. Aortic valve opens well, appears trileaflet. No evidence of stenosis or insufficiency. 9. Aorta appears minimally enlarged at 3.9 cm at the root. 10. No pericardial effusion seen. cc: Miki Degroot MD
[2016-07-08] MEDS: ZOSYN 3.375 GM/NS 3.375 GM/50 ML IVPB IV SCH ×4 (04:47→23:38)
[2016-07-08] MEDS: NS 1,000 ML IV SCH ×3 (04:48→23:38)
[2016-07-08 06:13] LABS: MANUAL DIFF NEEDED? NO
[2016-07-08 06:38] LABS: BASO% 0.1 % (0.0-0.8); EOS# 0.07 X1000 (0.0-0.7); EOS% 0.7 % (0.0-10.0); HEMATOCRIT 27.1 % (42.0-52.0); HEMOGLOBIN 9.1 g/dL (14.0-18.0); IMM GRAN# 0.05 X1000 (0.0-0.04); IMM GRAN% 0.5 % (0.0-0.5); LYMPH# 2.21 X1000 (1.2-3.4); LYMPH% 20.7 % (20.5-51.1); MCH 30.2 PG (27-31); MCHC 33.6 g/dL (33-37); MONO# 1.18 X1000 (0.11-0.59); MPV 12.7 FL (7.4-10.4); PLT 136 X1000 (130-400); RBC 3.01 XMIL (4.7-6.1)
[2016-07-08 06:50] LABS: AGAP 14; ALKALINE PHOSPHATASE 485 U/L (32-122); BUN 10 mg/dL (8-22); CALCIUM 8.4 mg/dL (8.8-10.2); CHLORIDE 104 mmol/L (98-107); COSMO 282; GOT 177 U/L (10-34); GPT 253 U/L (10-44); POTASSIUM 3.7 mmol/L (3.5-5.1); SODIUM 142 mmol/L (136-145); TCO2 24 mmol/L (25-35); TOTAL BILIRUBIN 6.43 mg/dL (0.20-1.00); TOTAL PROTEIN 5.9 g/dL (6.3-8.3)
[2016-07-08] MEDS: NORCO-10 PO PRN ×2 (07:43→19:17)
--- NOTE | 2016-07-08 08:09 | PROGRESS NOTE ---
DATE: 07/08/2016 SUBJECTIVE: Patient doing well. No major issues. OBJECTIVE: Vital Signs: Patient is currently afebrile. His vital signs have been stable. General: No acute distress. Cardiovascular: Regular rate and rhythm. Lungs: Grossly clear. Abdomen: Soft, less tender compared to yesterday. BRIDGET drain in place with serosanguineous output. LABORATORY: Still pending. It should be noted that yesterday his bilirubin was 3.37. ASSESSMENT AND PLAN: A 55-year-old male with common bile duct obstruction status post laparoscopic cholecystectomy with cholangiogram. Common bile duct obstruction. At this time, GI is to see the patient. Plan on the ERCP to evaluate for possible ampullary mass. Patient is somewhat frustrated and said he does not want anything else removed from his body. We will follow up on the results of the ERCP and make further recommendations and have a further discussion with the patient depending what those results say. The patient has been clinically stable otherwise. cc: Too Chou MD
[2016-07-08] MEDS: SODIUM CHLORIDE 0.9% INJ SCH (08:45)
[2016-07-08] MEDS: PROTONIX IV SCH ×2 (08:45→20:45)
[2016-07-08] MEDS: NICODERM PATCH TD SCH (08:46)
[2016-07-08] MEDS: PERIDEX MT SCH ×2 (08:46→20:45)
[2016-07-08] MEDS: LOPRESSOR PO SCH ×2 (08:46→20:44)
[2016-07-08] MEDS ORDERED: GLUCAGON ONE (08:55)
[2016-07-08] MEDS ORDERED: DIPRIVAN 1% ONE (10:59)
[2016-07-08] MEDS ORDERED: ANESTHESIA PB SET 88 IN 5742 ONE (11:06)
[2016-07-08] MEDS ORDERED: NS 1,000 ML ONE (11:06)
--- NOTE | 2016-07-08 11:15 | Diag Imaging Result Document ---
PROCEDURE NAME: ERCP-BILIARY AND PANCREATIC - 07/08/2016 ERCP, 2 IMAGES: FINDINGS: There is a lack of filling in the mid common bile duct and the second image somewhat obscures the distal end of the common bile duct. The pancreatic duct is not as well demonstrated on this study as on the intraoperative cholangiogram of 07/06/2016. IMPRESSION: Limited study.
[2016-07-08] MEDS ORDERED: ZOFRAN ONE (12:04)
[2016-07-08 13:57] LABS: MANUAL DIFF NEEDED? NO
[2016-07-08 14:04] LABS: BASO% 0.2 % (0.0-0.8); EOS# 0.08 X1000 (0.0-0.7); EOS% 0.7 % (0.0-10.0); HEMATOCRIT 27.3 % (42.0-52.0); HEMOGLOBIN 9.1 g/dL (14.0-18.0); IMM GRAN# 0.05 X1000 (0.0-0.04); IMM GRAN% 0.5 % (0.0-0.5); LYMPH# 2.46 X1000 (1.2-3.4); LYMPH% 22.9 % (20.5-51.1); MCH 30.1 PG (27-31); MCHC 33.3 g/dL (33-37); MCV 90.4 FL (81-99); MONO# 0.94 X1000 (0.11-0.59); MONO% 8.7 % (1.7-9.3); MPV 12.5 FL (7.4-10.4); PLT 151 X1000 (130-400); RBC 3.02 XMIL (4.7-6.1)
--- NOTE | 2016-07-08 14:10 | PROGRESS NOTE ---
DATE: 07/08/2016 SUBJECTIVE: This patient just came back from ERCP, he was not complaining of abdominal pain. He feels just sleepy. He denies nausea, vomiting. No diarrhea, no constipation. No chest pain. No shortness of breath. OBJECTIVE: Vital Signs: Temperature 98.6 degrees, pulse 88, respiratory rate 14, blood pressure 162/90, O2 saturation 96 on room air. HEENT: Normocephalic. No trauma. PERRLA. Neck: Supple. No JVD. No masses. Central trachea. Chest: Clear to auscultation. No wheezing. No rales. Cardiovascular: RRR. No murmurs. Abdomen: Soft. Mild tenderness to palpation at the level of the epigastric area. Positive bowel sounds. Extremities: No edema. No clubbing. No cyanosis. Neurological: The patient is alert and oriented x3. No focal deficits. LABORATORY: WBC 10.6, hemoglobin 9.1, hematocrit 27.1, platelets 136,000. Sodium 142, potassium 3.7, chloride 104, bicarbonate 24, BUN 10, creatinine 1, glucose 100, calcium 8.4, total bilirubin 6.4, AST 177, ALT 255, alkaline phosphatase 485, albumin 3. ASSESSMENT AND PLAN: 1. Possible biliary pancreatitis, this patient just had and an ERCP done today, pending Gastroenterology Department opinion and suggestions. Surgery Department is also following this patient. 2. Hypertension. I will continue today with Lopressor. Probably the heart rate is being controlled. Blood pressure is a little bit elevated but I will monitor the blood pressure for 1 more day probably and I will add another medication if blood pressure is high. 3. Tobacco abuse. This patient has been highly advised against tobacco use and I will continue with daily cessation education. cc: Michael Shukla MD
[2016-07-08 14:16] LABS: INR 1.06; PROTIME 11.2 Seconds (9.2-11.7)
--- NOTE | 2016-07-08 16:00 | Diag Imaging Result Document ---
PROCEDURE NAME: CT ABD/PELVIS W/ IV CONT ONLY - 07/08/2016 CT ABDOMEN AND PELVIS WITH INTRAVENOUS CONTRAST: COMPARISON: 07/05/2016. FINDINGS: Interval removal of the gallbladder. There are surgical clips in the gallbladder fossa and there is a drain just beneath the liver. There is a hematoma between the right kidney and liver which extends into the gallbladder fossa. No active extravasation of contrast. There is contrast in the pancreatic duct and distal common bile duct from an ERCP performed earlier in the day. A tiny amount of free air is present consistent with recent surgery. Normal spleen and adrenal glands. There are several small renal cysts. Moderate atherosclerosis. No aneurysmal dilatation. No bowel obstruction. The urinary bladder is overly distended. The prostate is prominent measuring just over 6 cm in greatest dimension. No abscess. IMPRESSION: 1. Recent cholecystectomy with a hematoma between the right kidney and liver, but no active extravasation of contrast. 2. Distended urinary bladder with an enlarged prostate. 3. Bibasilar atelectasis with questionable small underlying infiltrate and a tiny right pleural effusion. The films were reviewed with Dr. Chou at 3:30 p.m.
[2016-07-08] MEDS: DILAUDID IV PRN (16:18)
[2016-07-08] MEDS: ZOFRAN IV PRN (16:25)
[2016-07-08] MEDS: APRESOLINE IV PRN (17:57)
[2016-07-09] MEDS: NORCO-10 PO PRN ×2 (04:31→12:04)
[2016-07-09] MEDS: ZOSYN 3.375 GM/NS 3.375 GM/50 ML IVPB IV SCH (04:31)
[2016-07-09 06:08] LABS: MANUAL DIFF NEEDED? NO
[2016-07-09 06:19] LABS: BASO% 0.2 % (0.0-0.8); EOS# 0.14 X1000 (0.0-0.7); EOS% 1.4 % (0.0-10.0); HEMATOCRIT 25.1 % (42.0-52.0); HEMOGLOBIN 8.3 g/dL (14.0-18.0); IMM GRAN# 0.05 X1000 (0.0-0.04); IMM GRAN% 0.5 % (0.0-0.5); LYMPH# 1.87 X1000 (1.2-3.4); LYMPH% 18.8 % (20.5-51.1); MCH 30.1 PG (27-31); MCHC 33.1 g/dL (33-37); MCV 90.9 FL (81-99); MONO# 0.68 X1000 (0.11-0.59); MONO% 6.8 % (1.7-9.3); MPV 12.4 FL (7.4-10.4); NEUT% 72.3 % (42.2-75.2); PLT 155 X1000 (130-400); RBC 2.76 XMIL (4.7-6.1)
[2016-07-09 06:45] LABS: AGAP 13; ALBUMIN 2.9 g/dL (3.5-5.0); ALKALINE PHOSPHATASE 415 U/L (32-122); AMYLASE 185 U/L (20-200); BUN 6 mg/dL (8-22); CALCIUM 8.3 mg/dL (8.8-10.2); CHLORIDE 105 mmol/L (98-107); COSMO 278; GOT 89 U/L (10-34); GPT 184 U/L (10-44); LIPASE 101 U/L (13-60); MAGNESIUM 1.7 mg/dL (1.5-2.7); POTASSIUM 3.7 mmol/L (3.5-5.1); SODIUM 141 mmol/L (136-145); TCO2 23 mmol/L (25-35); TOTAL BILIRUBIN 1.72 mg/dL (0.20-1.00); TOTAL PROTEIN 5.9 g/dL (6.3-8.3)
[2016-07-09] MEDS: PERIDEX MT SCH (08:04)
[2016-07-09] MEDS: LOPRESSOR PO SCH (08:04)
[2016-07-09] MEDS: PROTONIX IV SCH (08:04)
[2016-07-09] MEDS: NICODERM PATCH TD SCH (08:04)
[2016-07-09] MEDS: SODIUM CHLORIDE 0.9% INJ SCH (08:05)
[2016-07-09 08:13] VITALS: BP 159/90
[2016-07-09] MEDS: DILAUDID IV PRN ×2 (08:20→11:23)
--- NOTE | 2016-07-09 16:15 | DISCHARGE SUMMARY ---
ADMISSION DATE: 07/05/2016 DISCHARGE DATE: 07/09/2016 DISCHARGE DIAGNOSES: 1. Choledocholithiasis improved. 2. Hyperbilirubinemia. Bilirubin is improved, it was 6.3, currently down to 1.7. 3. Acute hepatitis. ALT and AST both improving, currently down to 89 and 184. 4. Elevated alkaline phosphatase 681 on admit, currently down to 415. 5. Mild protein calorie malnutrition. 6. Acute pancreatitis. Amylase and lipase both essentially back to normal on discharge secondary to biliary source. 7. Hypertension. 8. Chronic tobacco abuse. 9. Recent cholecystectomy. 10. Leukocytosis resolved. 11. Mild anemia. Hemoglobin and hematocrit has continued to decline very slightly. Currently has been stable for the past 36 hours at [address] demonstrating a mild hematoma between the right kidney and liver although no active bleeding is noted. 13. Apparent history of chronic alcohol use. CONSULTATION: Aarti Roy MD. GENERAL SURGERY PROCEDURE: ERCP by Dr. Roy. BRIEF HOSPITAL COURSE: The patient is a 55-year-old pleasant male who is currently awake and alert, sitting up on the side of the bed, asking to go home. He was admitted to the hospital secondary to pancreatitis. He was noted to have a choledochal source. Biliary tree is the source of his pancreatitis. GI was consulted. Dr. Thorne initially saw him and Dr. Roy performed an ERCP. After the ERCP Mr. Donald continued to have a tremendous amount of improvement. His total bilirubin had increased to 6.3 prior to the ERCP, currently it is down to 1.7. AST and ALT also had been increasing prior to the ERCP, currently down to [address] was performed demonstrating mild hematoma but no extravasation of fluid so he has no active bleeding. His hemoglobin and hematocrit has remained stable for the past 36 hours. As noted, Mr. Donald had a full liquid breakfast with no difficulty. He is asking to go home. He states that he feels tremendously better. He is not taking any pain medicine currently. DISPOSITION: 35 minutes was spent in discharge planning and instructions. I discussed with General Surgery patient is better. We will discharge him home. He will slowly advance his diet at home. Patient understands how to do this. He will follow up with General Surgery in the next week to recheck his hemoglobin and hematocrit. He is instructed that should his symptoms worsen or return, he will need to immediately return back to the hospital. Blood pressures were elevated at times in the hospital to 152/92, but also down to 112/71, therefore, no changes were made on his blood pressure medications currently. Patient will be discharged home with metoprolol 50 b.i.d., [place] 10 q.4 p.r.n. #15. He will continue to take Prilosec. We will discharge him home with Levaquin as there is some question as to whether he is developing an early pneumonia versus atelectasis. Certainly up and about will improve this. DISCHARGE TIME: 35 minutes was spent in discharge planning and instructions. cc: Siddharth Delacruz MD
--- NOTE | 2016-07-10 09:09 | PROGRESS NOTE ---
DATE: 07/08/2016 SUBJECTIVE: Call from the nurse about increased drainage that looked sanguineus from J-P drain placed 2 days postop from a laparoscopic cholecystectomy. We did get a stat hematocrit which showed a decrease in his hematocrit. He was hemodynamically stable. The nurses reported maybe 300-400 mL of serosanguineous output through the course of the day. Given those findings and is postoperative state, we ordered a stat CT scan with IV contrast. I personally reviewed the images and reviewed the images with the radiologist, Dr. Washington. There was a hematoma on the right side of his liver. There was no active extravasation seen with IV contrast to suggest active bleeding. It looks like he had a postoperative hematoma. The drain is in appropriate position to evaluate this. Given the fact that there is no active extravasation, I did discuss with the patient that surgical intervention would probably be risky and that he would likely have significant inflammation to the point we probably would not be able to identify an active bleed. He was actually hemodynamically stable. Continue to monitor. We informed the nurses to check his vital signs frequently and to monitor him closely. I have informed Dr. Matthew Harris, who is the concrete conveyor operator surgeon for the weekend. He will evaluate the patient. We will repeat his labs in the morning. Follow him closely. If anything changes in his surgical status could consider surgical intervention but at this time given the fact that he is hemodynamically stable and there is no active extravasation, we will monitor for now. cc: Too Chou MD MTDD
--- NOTE | 2016-07-21 14:17 | OPERATIVE NOTE ---
PROCEDURE DATE: 07/21/2016 PROCEDURES: 1. Endoscopic retrograde cholangiopancreatography. 2. Endoscopic sphincterotomy. 3. Stone removal. 4. Stent placement. PREOPERATIVE DIAGNOSES: 1. Biliary pancreatitis. 2. Choledocholithiasis. POSTOPERATIVE DIAGNOSES: 1. Biliary pancreatitis. 2. Choledocholithiasis, stones removed, stent placed. DESCRIPTION OF PROCEDURE: After informed consent and adequate intravenous sedation by anesthesia, the scope introduced into the esophagus, stomach, and duodenum. The ampullary area appears inflamed. Selective cholangiogram revealed filling defect in the distal common bile duct. A wide sphincterotomy was done. Basket sweep with removal of debris was done. At this point, a 10- [place] 5 cm stent was deployed. The scope was withdrawn. The patient tolerated the procedure well without any complications. cc: Aarti Roy MD
--- NOTE | 2016-07-24 11:27 | PROGRESS NOTE ---
DATE: 07/09/2016 SUBJECTIVE: Feeling much better. Does not have any abdominal pain. Urine is getting clearer. He did have some right-sided abdominal pain and a CT scan showed a small hematoma under the liver. OBJECTIVE: Vital Signs: Afebrile. Vital signs are stable. Heart: Normal. Lungs: Normal. Abdomen: Surgical scars. Some tenderness in the right upper quadrant. Bowel sounds present and normal. Extremities: Unremarkable. Laboratory Data: The bilirubin has come down from 6.3 to 1.7. Similarly, LFTs were also down. There is some hematoma in the right upper quadrant which seems to be related to surgery. IMPRESSION AND PLAN: 1. Choledocholithiasis. 2. Cholangitis. 3. Acute pancreatitis. 4. Hematoma in the right upper quadrant. 5. History of alcohol use. The patient had a cholecystectomy. Patient had endoscopic retrograde cholangiopancreatography and stone removal and stent placement. He had pancreatitis which has resolved. Liver function tests are improving. The patient is getting ready to be discharged. I will see him in followup in 3-4 weeks at which time I will remove the stent and re-examine the bile duct site. cc: Aarti Roy MD
== END 2016-07-09 12:00 | disposition home or self-care (01) ==
LOC: P.ED 09:06 → 4N 09:06 → SUATTDRO 09:07 → OBSVTOIN 09:07 → 4N 14:03
PROVIDERS: ATTEND Family Medicine
PROC: EN.ERCP (2016-07-08 09:10)

== ENCOUNTER 2016-10-22 13:34 | Inpatient (IN) ==
[2016-10-22 15:28] LABS: BASO% 0.2 % (0.0-0.8); EOS# 0.22 X1000 (0.0-0.7); HEMATOCRIT 38.8 % (42.0-52.0); HEMOGLOBIN 14.4 g/dL (14.0-18.0); IMM GRAN# 0.02 X1000 (0.0-0.04); IMM GRAN% 0.2 % (0.0-0.5); LYMPH# 2.41 X1000 (1.2-3.4); LYMPH% 21.8 % (20.5-51.1); MANUAL DIFF NEEDED? NO; MCH 28.4 PG (27-31); MCHC 37.1 g/dL (33-37); MCV 76.5 FL (81-99); MONO# 0.93 X1000 (0.11-0.59); MONO% 8.4 % (1.7-9.3); NEUT% 67.4 % (42.2-75.2); PLT 183 X1000 (130-400); RBC 5.07 XMIL (4.7-6.1)
[2016-10-22 15:38] LABS: AGAP 16; ALBUMIN 4.3 g/dL (3.5-5.0); ALKALINE PHOSPHATASE 1022 U/L (32-122); AMYLASE 392 U/L (20-200); BUN 16 mg/dL (8-22); CALCIUM 9.4 mg/dL (8.8-10.2); CHLORIDE 101 mmol/L (98-107); COSMO 273; GOT 247 U/L (10-34); GPT 442 U/L (10-44); LIPASE 689 U/L (13-60); POTASSIUM 3.6 mmol/L (3.5-5.1); SODIUM 136 mmol/L (136-145); TCO2 19 mmol/L (25-35); TOTAL BILIRUBIN 12.75 mg/dL (0.20-1.00); TOTAL PROTEIN 7.8 g/dL (6.3-8.3)
--- NOTE | 2016-10-22 16:33 | PROVIDER DOCUMENTATION ---
This chart was entered by Bev Wharton Scribe, acting as scribe for Dannie Espinosa MD. HPI-General Adult - General Chief Complaint: Abnormal Lab[s] Stated Complaint: SENT BY MD FOR LIVER TO BE CHECKED Time Seen by Provider: 10/22/16 13:42 Source: patient Allergies/Adverse Reactions: Patient Allergies Allergy/AdvReac Type Severity Reaction Status Date / Time No Known Allergies Allergy Verified 07/05/16 09:13 Home Medications: Home Medication List Medication Instructions Recorded Confirmed Last Taken Type Metoprolol [Lopressor] 2 dose PO BID 07/05/16 07/06/16 07/05/16 History 50 mg Hydrocodone/APAP 10 mg/325 mg 1 each PO Q4H PRN PRN #15 tablet 07/09/16 Unknown Rx [Diboll-10] Levofloxacin [Levaquin] 500 mg PO DAILY #7 tablet 07/09/16 Unknown Rx - History of Present Illness -Gen Adult Nature of Presenting Problems: Pt is a 55 year old male who came to the ED with a cc of abnormal labs and dark urine for the past week. Pt liver enzymes are elevated told by his PCP. Pt was drinking two beers a night but hasn't been since he was sick. Location of Pain/Injury: reports: none Pain Radiation: reports: no radiation Quality of Pain: reports: none Onset/Duration: reports: just prior to arrival Timing: reports: still present Context/Activities at Onset: reports: none Modifying Factors: improves with: nothing Associated Symptoms: reports: denies symptoms Similar Symptoms Previously?: Yes Recently seen or treated by another doctor?: Yes Review of Systems - Adult - REVIEW OF SYSTEMS - ADULT Constitutional: denies: chills, fever Eyes: denies: blurred vision, double vision Ears, Nose, Mouth & Throat: reports: no symptoms reported Cardiovascular: reports: no symptoms reported Respiratory: reports: no symptoms reported Gastrointestinal: denies: diarrhea, nausea, vomiting Genitourinary: reports: no symptoms reported Musculoskeletal: reports: no symptoms reported Integumentary: reports: no symptoms reported Neurological: reports: no symptoms reported Psychiatric: reports: no symptoms reported Endocrine: reports: other (abnormal labs). denies: cold intolerance, heat intolerance Hematologic/Lymphatic: reports: no symptoms reported Allergic/Immunologic: reports: no symptoms reported All Other Systems: Reviewed and Negative Past History - Adult - PAST MEDICAL HISTORY-ADULT Review of Records: reports: Old Records Reviewed, Nursing Assessment Review Major Childhood Illnesses: reports: denies history Cardiovascular: reports: HTN, [place] Respiratory: reports: denies history Gastrointestinal: reports: denies history Obstetrical/Gynecological: reports: denies history Genitourinary: reports: denies history Musculoskeletal: reports: denies history Neurological: reports: denies history Endocrine/Immune: reports: denies history Other Conditions: reports: denies history - PRIOR SURGERIES/PROCEDURES Surgical/Procedure History: reports: reviewed, not pertinent - PRIOR HOSPITALIZATIONS Prior Hospitalizations: reports: for other non-related - IMMUNIZATION STATUS Childhood Immunizations: See Nurse Assessment Flu Vaccine: See Nurse Assessment - FAMILY HISTORY Family History: reviewed, not pertinent - SOCIAL HISTORY Smoking: cigarettes Physical Exam-General - CONSTITUTIONAL General Appearance: alert, no apparent distress - EYES Eyes: other (jaundice eyes) - HEAD, EARS, NOSE, MOUTH & THROAT HENMT: normocephalic/atraumatic, moist mucous membranes - NECK Neck: non-tender, full range of motion - RESPIRATORY Respiratory: chest non-tender, lungs clear - CARDIOVASCULAR Cardiovascular: normal peripheral pulses, regular rate, rhythm - GASTROINTESTINAL (ABDOMEN) Abdominal Exam: normal bowel sounds, non tender, soft - MUSCULOSKELETAL Back Exam: normal inspection, no CVA tenderness Extremity: normal range of motion, non-tender - SKIN Integumentary: normal color, normal turgor - NEUROLOGIC Neurologic: grossly normal - PSYCHIATRIC Psych/Mental Status: normal mood/affect, normal thought content, normal thought process, oriented x 3 Progress - PLAN OF CARE/RESULTS Progress/Plan/Lab Results: Vital Signs - 8 hr 10/22/16 13:37 Temperature 98.1 F Pulse Rate 84 Respiratory Rate 20 Blood Pressure 170/104 O2 Sat by Pulse Oximetry 98 Orders Category Date Time Status CBC WITH ELECTRONIC DIFF [HEME] Stat Lab 10/22/16 13:49 Uncollected CMP [COMPREHENSIVE METABOLIC PANEL] [CHEM] Stat Lab 10/22/16 13:49 Uncollected Result Diagrams: 10/22/16 14:53 10/22/16 14:53 - REASSESSMENT Reassessment #1 Time Reassessed: 17:16 Status: unchanged (agrees to admission/ pancreatitis/ biliary obstruction) Departure - Departure Date of Disposition Decision: 10/22/16 Time of Disposition Decision: 17:16 DIAGNOSIS: Biliary obstruction Pancreatitis Qualifiers: Chronicity: chronic Pancreatitis type: biliary Qualified Code(s): K86.1 - Other chronic pancreatitis Disposition: ADMITTED INPATIENT 09 Certified Medical Emergency: Emergent Condition: Stable Referrals and Follow-Ups: None,PCP [Primary Care Provider] - - Critical Care Note This patient required my direct & personal management of CC.: No Attestation - Physician/ MARTÍNEZ Attestation The physician spent face to face time with patient:: Yes Advanced Practice Provider documentation review:: Supervising physician onsite and consulted in the evaluation and care of this patient. The physician did have a face to face encounter with the patient. This chart was documented by the indicated scribe, (Bev Wharton Scribe) and accurately reflects the services I performed and decisions made by me, Dannie Espinosa MD, as attested by the provider's signature.
--- NOTE | 2016-10-22 17:12 | Diag Imaging Result Doc PS360 ---
EXAM: CT ABD/PELVIS W/ IV CONT ONLY HISTORY: lft, amylase, lipase, elevated TECHNIQUE: CT of the abdomen and pelvis with intravenous contrast and reduced dose (clarity.) COMMENT: There is atelectasis in the posterior costophrenic sulcus of both lower lobes. There is atherosclerotic calcification in the infrarenal abdominal aorta. The distal aorta is slightly distended to a maximum AP diameter of 2.1 cm. The common iliac arteries are also slightly distended with the right measuring 13 mm in diameter. The mesenteric arteries are patent. The renal arteries are patent. The adrenal glands and spleen are not enlarged. There is been cholecystectomy. There is marked biliary dilatation. There is also marked dilatation of the pancreatic duct into the head of the pancreas. No definite stones are identified. The common bile duct measures almost 12 mm and the distal pancreatic duct measures up to 10 mm. This is much worse than on 08/12/2016. The intrahepatic biliary ducts are markedly distended. There are numerous cysts in the kidneys. The appearance of the kidneys has not changed significantly since the previous study. There is no evidence of bowel obstruction. No significant adenopathy is present. Pelvis: The regional skeleton is stable in appearance. There are no abnormal fluid collections. There is no evidence of adenopathy or mass. IMPRESSION: Marked worsening of dilatation the common bile duct and pancreatic duct, presumably due to obstructing lesion at the level of the distal common bile duct or ampulla. Electronically signed by Lior Stephenson 10/22/2016 5:09 PM
[2016-10-22 17:59] LABS: INR 1.04; PROTIME 10.9 Seconds (9.2-11.7)
[2016-10-22 18:02] LABS: ACETAMINOPHEN 3.7 ug/mL (10-30)
--- NOTE | 2016-10-22 19:41 | HISTORY AND PHYSICAL ---
TIME OF ENCOUNTER: 1800 PRESENTING COMPLAINT: [place] yellow urine. HISTORY OF PRESENTING COMPLAINT: Mr. Donald is a 55-year-old male known to have coronary artery disease status post stent in the past and also hypertension was admitted to [facility] on somewhere in June because of right upper quadrant pain, was found to be in biliary pancreatitis, was brought in here, laparoscopic cholecystectomy was done and also ERCP with stent placement was done. The patient did well went home, he seems to be doing fine. Followed up with Dr. Roy according to him to have the stent removed. According to Mr. Donald he has been relatively fine until about a week ago he started noticing that his urine is getting darker, more yellow and he has been kind of dragging himself to get up, having some weakness and his appetite is little low. Mr. Donald also states that he has been having some on and off temperatures. So he decided to go to a primary care doctor who referred him to come to the emergency room. PAST MEDICAL HISTORY: 1. Coronary artery disease status post stents about 7 years ago, [facility] [place]. 2. Hypertension. MEDICATIONS AT HOME: 1. Metoprolol 50 mg 2 times per day. 2. Aspirin 325 once daily. ALLERGIES: None. SURGICAL HISTORY: 1. Previous stents. 2. Recent laparoscopic cholecystectomy. 3. Recent CBD stent placement and removal. SOCIAL HISTORY: Patient is , lives with the , has 4 kids. Has about 30 pack year history and also occasionally drinks alcohol. Denies any recreational drug use. REVIEW OF SYSTEMS: Fourteen point review of system conducted with Mr. Donald unremarkable except what we have in the HPI. Specifically Mr. Donald denies any chest pain, shortness of breath. There is no abdominal pain. No diarrhea. Occasionally has some hiccups. Patient refers to have lost some weight but he cannot quantify, BMI is 19.5. PHYSICAL EXAM: VITAL SIGNS: Blood pressure is 141/85, pulse of 81, respirations 18, temperature is 98.2 degrees, height is 5 feet 11 inches, weight is 140 pounds and BMI of 19.5. GENERAL: Mr. Donald is a 55-year-old male. He is in bed. He is not in any distress. He looks slightly wasted. HEENT: Mucosa is pink and moist. About 3+ icteric. Head is normocephalic and atraumatic. NECK: Supple. There is no JVD. CHEST: Good air entry bilateral. There is no crepitations, no rhonchi. There is no accessory muscle use. CARDIOVASCULAR: Regular rate and rhythm. There is no murmurs, no rubs, no gallops. Neola is at the 5th intercostal space midclavicular line. ABDOMEN: Is soft, is completely nontender, bowel sounds are present. Did not feel any masses and no hepatosplenomegaly. There is no CVA tenderness. EXTREMITIES: No pedal edema. Distal pulses are present. BUSINESS DEVELOPMENT DIRECTOR: Patient is awake, alert and oriented x4. Executive functions are intact. Normal gait. Cerebellar functions are normal. Motor is 5/5 in all 4 extremities and sensation is intact. Cranial nerves 2-12 have been grossly examined and they are all unremarkable. LABORATORY DATA: WBC is 11.07, hemoglobin is 14.4, platelet count of 183,000. Chemistry is reviewed. Sodium is 136, potassium is 3.6, chloride is 101, bicarb is 19, BUN is 16, creatinine is 1.4 which is new, total bilirubin is 12.75, AST 247, ALT 442, alkaline phosphatase is 1022, amylase is 395 and lipase is 689. Coagulation. PT 10.9, INR is 1.04. A CT scan of the abdomen and pelvic shows marked worsening of dilation the common bile duct and pancreatic duct presumably due to obstructing lesion at the level of the distal common bile duct or ampulla. ASSESSMENT: Mr. Donald is a 55-year-old who about 4 months ago had biliary pancreatitis, got gallbladder taken out, a stent was placed. Came in this time again with recurrent of his symptoms. 1. Obstructive jaundice. CT report alludes to the possibility of a distal common bile duct obstructing lesion. We will consult GI to evaluate the patient for another ERCP with possible stent placement and get some tissue from the obstructing lesion. 2. Biliary pancreatitis. CT scan did not show any inflammatory changes in the pancreas however the lipase and amylase are very elevated. We are going to keep the patient at least NPO for now. Get him well hydrated and get GI to see him. 3. Generalized weakness and B symptoms. Patient refers to have to have lost some weight. He has lost appetite. He has some occasional sweats and some fevers. In the setting of painless jaundice this is kind of worrisome for possible underlying malignancy. The CA-19-9 has been noted and will be waiting on GI to give further recommendations. 4. History of coronary artery disease status post stent in the past noted. 5. Tobacco abuse. PLAN: We are going to admit Mr. Donald to medical floor with playground monitor. We will going to start him on lactated Ringer's at the rate of 125 mL/h. Keep him NPO until he is evaluated by GI just in case they want to do any emergent procedure. I will start the patient on antibiotics in (meropenem) just because he said he had some chills and fevers just to make sure the CBD stagnant bile is not getting infected. Will follow up in the morning with repeat labs and give further recommendations. cc: Steven Navarro MD MTDD
[2016-10-22] MEDS: MERREM 500 MG in NS 50 ML IV SCH (20:20)
[2016-10-23] MEDS: MERREM 500 MG in NS 50 ML IV SCH ×3 (04:10→20:51)
[2016-10-23 06:33] LABS: AGAP 15; ALBUMIN 4.1 g/dL (3.5-5.0); ALKALINE PHOSPHATASE 939 U/L (32-122); BUN 14 mg/dL (8-22); CALCIUM 9.1 mg/dL (8.8-10.2); CHLORIDE 102 mmol/L (98-107); COSMO 277; GOT 221 U/L (10-34); GPT 399 U/L (10-44); IRON SATURATION 27 %; POTASSIUM 3.7 mmol/L (3.5-5.1); SODIUM 138 mmol/L (136-145); TCO2 21 mmol/L (25-35); TIBC 367 ug/dL; TOTAL BILIRUBIN 12.17 mg/dL (0.20-1.00); TOTAL IRON 99 ug/dL (53-167); TOTAL PROTEIN 7.1 g/dL (6.3-8.3); UNBOUND IRON 268 ug/dL (112-346)
[2016-10-23 06:54] LABS: HEMATOCRIT 36.3 % (42.0-52.0); HEMOGLOBIN 13.3 g/dL (14.0-18.0); MCHC 36.6 g/dL (33-37); MCV 76.4 FL (81-99); PLT 178 X1000 (130-400); RBC 4.75 XMIL (4.7-6.1)
[2016-10-23] MEDS ORDERED: TORADOL IV SCH (10:15)
[2016-10-23] MEDS ORDERED: NICODERM PATCH TD ONE (10:15)
[2016-10-23] MEDS ORDERED: TORADOL IV PRN (11:14)
--- NOTE | 2016-10-23 14:58 | PROGRESS NOTE ---
DATE: 10/23/2016 SUBJECTIVE: The urine was yellow in color and he was concerned. He is a 55-year-old male, known to have coronary artery disease status post stent in the past. Also hypertension. Admitted for [place] somewhere in June with right upper quadrant pain. Found to have biliary pancreatitis. Was brought for laparoscopic cholecystectomy which was done, and also endoscopic retrograde cholangiopancreatography and stent placement done. Patient did well, went home. Seems to be doing fine. Followup with Aarti Roy. According to him bruce were removed. According to Mr. Donald he had been relatively fine until about a week ago. Started noticed his urine was getting darker and more yellow. Kind of dragged himself around, having some weakness. Appetite is a little low. Been having some subjective fevers. He decided to go to his primary care doctor and he referred her to the emergency room with coronary artery disease. PAST MEDICAL HISTORY: 1. Once again, coronary artery disease. Stents placed about 7 years ago. 2. Hypertension. 3. Apparently was at [place] in June with biliary pancreatitis. Had a laparoscopic cholecystectomy suspected. An endoscopic retrograde cholangiopancreatography done at that time. Was admitted with obstructive jaundice. CT report includes the possibility of distal common bile duct obstruction. GI consulted. Consider endoscopic retrograde cholangiopancreatography and possibility of choledocholithiasis. 4. Biliary pancreatitis. CT scan showed inflammation. Did not show any inflammation changes in the pancreas; however, his lipase and amylase were elevated. 5. General weakness and he has lost some weight. Poor appetite. 6. History of coronary artery disease. 7. History of tobacco use. GI is consulted and CA 19-9 is being checked. Hepatitis profile being checked at this time. He is complaining of a headache. I will let him have some Toradol. Nicotine patch. I think he could probably have liquids and be okay. cc: Pablito Ayon MD
--- NOTE | 2016-10-23 18:42 | CONSULTATION ---
DATE OF CONSULTATION: 10/23/2016 PRIMARY CARE PROVIDER: None. PRIMARY DAIRY NUTRITION SPECIALIST: Aarti Roy M.D. INDICATION FOR CONSULTATION: 1. Jaundice. 2. Ampullary obstruction. 3. History of biliary pancreatitis. HISTORY OF PRESENT ILLNESS: Mr. Donald is a 55-year-old male who presented with right upper quadrant pain and jaundice in June 2016. He was found to have biliary pancreatitis. He subsequently underwent a cholecystectomy which confirmed chronic cholecystitis and an ERCP with stent placement for jaundice. He states that he was doing well following hospital discharge. Approximately 1 week prior to admission, he noticed that his urine became dark in color and it was associated with jaundice and fatigue. He presented to the emergency room on 02/2017. On CT scan, he was found to have worsening dilation of the common bile duct and pancreatic duct suggestive of an obstructive lesion at the level of the common bile duct or ampulla. We are asked to participate in his care and reevaluate his hepatobiliary tree with a possible ERCP. PAST MEDICAL HISTORY: 1. Coronary artery disease. 2. History of coronary artery stent approximately 2009. 3. Hypertension. 4. Remote heavy alcohol use. He reports only occasional alcohol at the present time. PAST SURGICAL HISTORY: 1. Cholecystectomy. 2. ERCP. 3. Coronary artery stents. MEDICATION ALLERGIES: None. HOME MEDICATIONS: 1. Metoprolol 50 mg twice daily. 2. Aspirin 325 mg daily. SOCIAL HISTORY: The patient is and has 4 children. He has a 30 pack- year tobacco history. He has a history of occasional alcohol use at present. He reports heavier alcohol use in the past. He denies recreational drug use. Smokes 1 pack per day and has done so for approximately 30 years. According to the chart, he has had remote alcohol use in the past but drinks only socially at the present time. There is no documentation of recreational drug use. REVIEW OF SYSTEMS: Negative for nausea with vomiting, chest pain, shortness of breath. He notes jaundice, fatigue, pruritus and possible weight loss. He is unable to quantify how much weight loss. PHYSICAL EXAM: General: He is in no acute distress. Vital Signs: His blood pressure is 171/94, pulse 96, respiration 18, temperature 98.3 degrees. HEENT: Notable for jaundice. His sclerae are normal in color. His oropharyngeal mucosal membranes are moist. Pulmonary : Lungs are clear to auscultation with normal respiratory effort. Cardiovascular Exam: Reveals regular rate and rhythm with no gallops or rubs. Abdomen: Reveals normoactive bowel sounds. The abdomen is soft, nontender, with no rebound or guarding. Extremities: Bilaterally are negative for cyanosis, clubbing, or edema. OBJECTIVE DATA: Reveals a hemoglobin of 13.3 with hematocrit of 36.3 and a white count of 10.15. His MCV is 76.4 with an MCH of 28.0. He has 178,000 platelets. His sodium is 138, potassium 3.7, chloride 102, CO2 21, BUN 14, creatinine 1.2 with a glucose 105. Calcium is 9.1, total bilirubin 12.17, ferritin is 463, AST is 221, ALT 339, alkaline phosphatase 939 , total protein 7.1, albumin 4.1. His vitamin B12 is 1738. His folic acid is 18.1 with a TSH of 0.65. On 10/22/2016 his plasma lactate was 0.7 with a CEA of 4.7. His salicylate, acetaminophen and alcohol levels were unremarkable. IMPRESSION: 1. Obstructive jaundice. 2. Recent biliary pancreatitis. 3. Fatigue. 4. Weight loss. 5. Pruritus. RECOMMENDATION: 1. In light of the patient's CT scan findings, I will place the patient on the schedule for an ERCP tomorrow with Dr. Aarti Roy. 2. I agree with reassessment of his hepatobiliary tree with alpha fetoprotein, CA-19-9 and hepatitis profile. 3. I agree with meropenem I.V. q.8 hours. 4. I would discontinue Toradol in light of plans to perform the ERCP tomorrow as this is a nonsteroidal anti-inflammatory medication. 5. Orders were written for the ERCP and Dr. Roy will be notified in the morning. 6. Continue a clear liquid diet. He will need to be NPO after midnight. cc: MD SHAY Hayes
[2016-10-24] MEDS: MERREM 500 MG in NS 50 ML IV SCH ×3 (04:12→22:58)
[2016-10-24 06:25] LABS: HEMOGLOBIN 14.2 g/dL (14.0-18.0); MCH 28.8 PG (27-31); MCHC 37.4 g/dL (33-37); MCV 77.1 FL (81-99); PLT 183 X1000 (130-400); RBC 4.93 XMIL (4.7-6.1)
[2016-10-24 06:38] LABS: AGAP 16; ALBUMIN 4.2 g/dL (3.5-5.0); ALKALINE PHOSPHATASE 1041 U/L (32-122); BUN 10 mg/dL (8-22); CALCIUM 9.6 mg/dL (8.8-10.2); CHLORIDE 101 mmol/L (98-107); COSMO 278; GOT 298 U/L (10-34); GPT 464 U/L (10-44); POTASSIUM 3.7 mmol/L (3.5-5.1); SODIUM 139 mmol/L (136-145); TCO2 22 mmol/L (25-35); TOTAL PROTEIN 7.6 g/dL (6.3-8.3)
[2016-10-24] MEDS: PROTONIX IV SCH (09:38)
[2016-10-24] MEDS: NICODERM PATCH TD SCH (09:38)
[2016-10-24] MEDS: SODIUM CHLORIDE 0.9% INJ SCH (09:38)
--- NOTE | 2016-10-24 10:03 | PROGRESS NOTE ---
DATE: 10/24/2016 SUBJECTIVE: He is wanting food. At this time he feels better. He is supposed to get an EGD this morning. OBJECTIVE: Vital signs: Temperature 98.7 degrees, pulse 88, respirations 16, blood pressure 160/100. Lungs: Clear in all lung barkley. Cardiovascular: Regular rhythm and rate without murmur or S3. Abdomen: Soft. Skin: Warm and dry. LAB: Reviewed from this morning. CBC: White count 9,450, hematocrit 38, platelet count 183,000. Chemistry: Sodium 139, potassium 3.7, chloride 101, BUN 10, creatinine 1.1. Liver functions: Transaminases seemed to be going up a little bit; the same with alkaline phosphatase. B12 and folate look okay. TSH was 0.65. ASSESSMENT AND PLAN: 1. Jaundice and ampullary obstruction, history of biliary pancreatitis. The patient is schedule for ERCP, I think EGD an ERCP today with Dr. Roy. 2. Reassessment of his hepatobiliary tree with the alpha fetoprotein and CA-19-9 which are pending. We will continue the meropenem IV. Dr. De Leon stopped the Toradol. He was getting that for headaches. 3. I review the orders. I reviewed the lab. He does have a history of coronary artery disease and he does have a history of tobacco use. He is on nicotine patch. cc: Pablito Ayon MD
[2016-10-24] MEDS ORDERED: NS 1,000 ML IV SCH (10:31)
[2016-10-24 10:35] LABS: HEPATITIS PROFILE ACUTE SEE COMMENTS
[2016-10-24] MEDS ORDERED: XYLOCAINE-MPF 2% ONE (12:39)
[2016-10-24] MEDS ORDERED: DIPRIVAN 1% ONE ×3 (12:39→13:19)
[2016-10-24] MEDS ORDERED: LABETALOL ONE (12:47)
--- NOTE | 2016-10-24 14:04 | Diag Imaging Result Doc PS360 ---
EXAM: ERCP-BILIARY AND PANCREATIC HISTORY: STENT PLACEMENT TECHNIQUE: ERCP three images COMMENT: There is apparent dilatation of both the pancreatic and common bile ducts distally. Two stents were placed on the last image, presumably one in each duct. IMPRESSION: Stenting of the pancreatic and common bile ducts. Electronically signed by Lior Stephenson 10/24/2016 2:02 PM
[2016-10-24] MEDS: LOPRESSOR PO SCH ×2 (15:54→22:58)
[2016-10-25] MEDS: MERREM 500 MG in NS 50 ML IV SCH (05:38)
[2016-10-25 06:49] LABS: HEMATOCRIT 33.7 % (42.0-52.0); HEMOGLOBIN 12.1 g/dL (14.0-18.0); MCH 28.3 PG (27-31); MCHC 35.9 g/dL (33-37); MCV 78.9 FL (81-99); PLT 176 X1000 (130-400); RBC 4.27 XMIL (4.7-6.1)
[2016-10-25 07:14] LABS: AGAP 13; ALBUMIN 3.3 g/dL (3.5-5.0); ALKALINE PHOSPHATASE 751 U/L (32-122); BUN 9 mg/dL (8-22); CALCIUM 9.3 mg/dL (8.8-10.2); CHLORIDE 103 mmol/L (98-107); COSMO 279; GOT 119 U/L (10-34); GPT 305 U/L (10-44); POTASSIUM 3.8 mmol/L (3.5-5.1); SODIUM 140 mmol/L (136-145); TCO2 24 mmol/L (25-35); TOTAL BILIRUBIN 5.42 mg/dL (0.20-1.00); TOTAL PROTEIN 6.4 g/dL (6.3-8.3)
[2016-10-25 07:42] VITALS: BP 174/100
[2016-10-25] MEDS: NICODERM PATCH TD SCH (08:14)
[2016-10-25] MEDS: SODIUM CHLORIDE 0.9% INJ SCH (08:14)
[2016-10-25] MEDS: LOPRESSOR PO SCH (08:14)
[2016-10-25] MEDS: PROTONIX IV SCH (08:14)
--- NOTE | 2016-10-25 10:08 | DISCHARGE SUMMARY ---
ADMISSION DATE: 10/22/2016 DISCHARGE DATE: 10/25/2016 HOSPITAL COURSE: This is a 56-year-old male known to have known coronary artery disease status post stent in the past, also hypertension, admitted to [facility] in June with right upper quadrant pain. He was found to have biliary pancreatitis and brought here. Had a laparoscopic cholecystectomy, as well as an ERCP with stent placement. The patient did well at home, seemed to be doing well. Followed by Dr. Roy. According to him, he was to follow up and get his stent removed. According to Mr. Donald, he has been relatively fine until about a week ago and started noticing urine getting darker or yellow, kind of dragging himself to get up, having some weakness and appetite was a little low, and then noticed some jaundice. He did have some subjective fevers off and on. PAST MEDICAL HISTORY: 1. Coronary artery disease status post stent about 7 years ago. Follow up with cardiology in [place]. 2. Hypertension. 3. He had elevated liver enzymes and GI was consulted, Dr. Tracy De Leon. He had evidence of obstructive jaundice, recent biliary pancreatitis and CT scanning showed consistent with pancreatitis, obstructive jaundice. Scheduled for an ERCP which he underwent with Dr. Roy. I think a new stent was placed. They did assess the hepatobiliary tree with alpha fetoprotein, calcium 19/9, hepatitis profile. The patient was feeling better and eating and requested to go home. LABS: His hematocrit was 33, platelet count 176,000. Sodium 140, potassium 3.8, chloride 103, BUN 9, creatinine 0.9. Liver transaminases were coming down. AST from 298 to 119, ALT 464 to 305, alkaline phosphatase 1041 to 751. DISPOSITION: [place] like we could let him go home. He is to follow up with Dr. Roy. Blood cultures did show gram-negative rods. Actually, one of his cultures showed coagulase-negative Staphylococcus; I think that was a contaminant. Other blood culture was negative. So, I did not discharge him on any antibiotics. He was taking meropenem while he was here. So, I may put him on Augmentin 875 twice a day for another 7 days because he had a recent stent placed. He is on Lopressor 50 mg b.i.d., NicoDerm patch (I will give him prescription), Protonix 40 mg a day. He was taking hydrocodone at home; I will leave that up to his primary care provider and discharge him on 10/25/2016. cc: Pablito Ayon MD
--- NOTE | 2016-10-26 12:09 | OPERATIVE NOTE ---
PROCEDURE DATE: 10/24/2016 PROCEDURE: 1. Endoscopic retrograde cholangiopancreatography. 2. Endoscopic retrograde cholangiopancreatography with sphincterotomy. 3. Stent placement. 4. Endoscopic retrograde cholangiopancreatography with biopsy. PREOPERATIVE DIAGNOSIS: Obstructive jaundice. POSTOPERATIVE DIAGNOSES: 1. Prominent ampulla, rule out ampullary neoplasm, biopsied. 2. Stenting of the bile duct with double stents. HISTORY OF PRESENT ILLNESS: This is a 55-year-old gentleman who had common bile duct stone. Had sphincterotomy and stone removal done in July. Has been followed-up with me and came in with obstructive jaundice and dilation of both common bile duct and pancreatic duct. Endoscopic retrograde cholangiopancreatography is being done. DESCRIPTION OF PROCEDURE: After informed consent and adequate, intravenous sedation by Anesthesia, the scope introduced all the way into the duodenum. The previous stent is dislodged. Scanning of the abdomen under fluoro did not reveal the stent anywhere. The intraduodenal portion of the common bile duct is very distended. Ampulla also appeared prominent. At this point, a very wide sphincterotomy was done and the ampullary area was splayed open. Biopsies were done. At this point, cholangiogram was obtained which showed dilated common bile duct. At this point, two stents were placed both 7 cm and a 10-[place]. There is good drainage of the bile and there are no residual stones. There is decompression of the common bile duct. The scope was withdrawn. The patient tolerated the procedure well without any immediate complications. I will see him in the office in 2-3 months, but meanwhile I will follow up the biopsy results. cc: MD Pablito Hayes MD
== END 2016-10-25 10:57 | disposition home or self-care (01) ==
LOC: ED 13:34 → 4N 17:57 → SUATTDRO 17:57
PROVIDERS: ATTEND Emergency Medicine